=== PATIENT | female | born 1995 | race Two or more races ===

== ENCOUNTER 2017-02-14 15:04 | Observation (INO) | payer MEDICAID, OTHER ==
[~2017-02-14] VITALS: Ht 160 cm; Wt 75.7 kg
[2017-02-14] MEDS ORDERED: SODIUM CHLORIDE 0.9% 1,000 ML IV ONE (15:37)
[2017-02-14 15:51] LABS: HEMATOCRIT 38.9 % (34.6-47.8); HEMOGLOBIN 13.1 g/dL (11.7-16.4); WHITE BLOOD COUNT 27.2 x10^3/uL (3.4-10)
[2017-02-14] MEDS ORDERED: ONDANSETRON 2MG/ML, 2ML IVPush ONE (16:00)
[2017-02-14] MEDS ORDERED: SODIUM CHLORIDE 0.9% 1,000ML IVBOLUS ONE (16:00)
[2017-02-14 16:05] LABS: ASPARTATE AMINO TRANSFERASE 16 U/L (15-37); BLOOD UREA NITROGEN 10 mg/dL (7-18)
[2017-02-14 16:15] LABS: DIFF TOTAL CELLS COUNTED 100 CELL DIFF
[2017-02-14 16:17] LABS: VERIFY COUNTS? YES
[2017-02-14] MEDS ORDERED: MIDAZOLAM 1 MG/ML, 2ML ONE (16:50)
[2017-02-14] MEDS ORDERED: FENTANYL PF 100 MCG/2ML ONE ×2 (16:50)
[2017-02-14] MEDS ORDERED: BUPIVACAINE/PF-EPI 0.25% 1:200K ONE (17:07)
[2017-02-14] MEDS ORDERED: BUPIVACAINE/PF 0.5% ONE (17:07)
[2017-02-14] MEDS ORDERED: EPINEPHRINE 1 MG/ML, 1ML ONE (17:07)
[2017-02-14] MEDS ORDERED: ROCURONIUM 10 MG/ML ONE (17:26)
[2017-02-14] MEDS ORDERED: DEXAMETHASONE 4 MG/ML, 1ML ONE (17:26)
[2017-02-14] MEDS ORDERED: GLYCOPYRROLATE 0.2MG/1ML, 5ML ONE (17:26)
[2017-02-14] MEDS ORDERED: SUCCINYLCHOLINE 20 MG/ML, 10ML ONE (17:26)
[2017-02-14] MEDS ORDERED: NEOSTIGMINE 1 MG/ML, 10ML ONE (17:26)
[2017-02-14] MEDS ORDERED: ONDANSETRON 2MG/ML, 2ML ONE (17:26)
[2017-02-14] MEDS ORDERED: PHENYLEPHRINE 10 MG/ML ONE (17:26)
[2017-02-14] MEDS ORDERED: CEFAZOLIN 1,000 MG ONE (17:26)
[2017-02-14] MEDS ORDERED: PROPOFOL 10 MG/ML, 20ML ONE (17:26)
[2017-02-14] MEDS ORDERED: ONDANSETRON 2MG/ML, 2ML IVPush PRN ×2 (17:30→19:30)
[2017-02-14] MEDS ORDERED: OXYcodone 5 MG/5 ML ORAL.SOL UDC PO PRN (17:30)
[2017-02-14] MEDS ORDERED: PROMETHAZINE 25 MG/ML, 1ML IV PRN (17:30)
[2017-02-14] MEDS ORDERED: FENTANYL PF 100 MCG/2ML IV PRN (17:30)
[2017-02-14] MEDS ORDERED: HYDROmorphone 1 MG/ML, 1ML IV PRN (17:30)
[2017-02-14] MEDS ORDERED: KETAMINE 10 MG/ML, 20ML ONE (17:31)
[2017-02-14 18:29] LABS: HEMATOCRIT 23.9 % (34.6-47.8); WHITE BLOOD COUNT 19.4 x10^3/uL (3.4-10)
[2017-02-14 18:47] LABS: DIFF TOTAL CELLS COUNTED 200 CELL DIFF
[2017-02-14 18:48] LABS: VERIFY COUNTS? YES
[2017-02-14] MEDS ORDERED: morphine SULFATE 10 MG/ML, 1ML IVPush PRN (19:30)
[2017-02-14] MEDS ORDERED: KETOROLAC 30 MG/1 ML IVPush PRN (19:30)
[2017-02-14] MEDS: POTASSIUM CHLORIDE 20 MEQ in LACTATED RINGERS 1,000 ML IV SCH (22:16)
[2017-02-14 22:47] LABS: HEMATOCRIT 33.7 % (34.6-47.8); HEMOGLOBIN 11.1 g/dL (11.7-16.4); WHITE BLOOD COUNT 16.8 x10^3/uL (3.4-10)
[2017-02-15 00:13] VITALS: BP 83/52
[2017-02-15] MEDS: OXYcodone/APAP 5/325MG TABLET PO PRN ×3 (02:30→12:29)
[2017-02-15 04:12] VITALS: BP 95/66
[2017-02-15 05:21] LABS: HEMATOCRIT 28.2 % (34.6-47.8); HEMOGLOBIN 9.6 g/dL (11.7-16.4); WHITE BLOOD COUNT 12.8 x10^3/uL (3.4-10)
[2017-02-15 05:27] LABS: BLOOD UREA NITROGEN 7 mg/dL (7-18)
[2017-02-15 05:31] LABS: ASPARTATE AMINO TRANSFERASE 9 U/L (15-37)
[2017-02-15] MEDS: POTASSIUM CHLORIDE 20 MEQ in LACTATED RINGERS 1,000 ML IV SCH ×2 (06:00→14:05)
[2017-02-15 08:05] VITALS: BP 96/66
[2017-02-15 12:42] VITALS: BP 97/59
[2017-02-15 13:25] VITALS: BP 92/55
[2017-02-15] MEDS ORDERED: OXYC-302 PO (13:57)
[2017-02-15] MEDS ORDERED: IBUP-1222 PO (14:00)
== END 2017-02-15 14:05 | disposition home or self-care (01) ==
LOC: ED 17:21 → INTOOBSV 17:31 → EDIP 17:31 → 4NOR 20:34 → DCLOUNGE 02-15 13:30
PROVIDERS: ADMIT Obstetrics & Gynecology Gynecology; ATTEND Obstetrics & Gynecology Gynecology
DX: O00.91 Unspecified ectopic pregnancy with intrauterine pregnancy (principal); N89.8 Other specified noninflammatory disorders of vagina; O26.859 Spotting complicating pregnancy, unspecified trimester; O26.50 Maternal hypotension syndrome, unspecified trimester; Z3A.00 Weeks of gestation of pregnancy not specified
CPT/HCPCS: 36415; 36430; 59151; 80053; 83690; 84702; 84703; 85025; 85384; 85610; 85730; 86850; 86900; 86923; 88305; 93005; 96374; 99291; G0378; J0330; J0690; J1100; J1885; J2250; J2270; J2370; J2405; J2704; J2710; J3010; J3480; J7030; J7120; P9016; J0171; J3490